=== PATIENT | female | born 1980 | race Caucasian/White ===

== ENCOUNTER 2021-06-13 09:59 | Outpatient (CLI) | payer OTHER | END 2021-06-13 10:00 | disposition home or self-care (01) | LOC: RAD-FRANK 09:59 | PROVIDERS: ATTEND Nurse Practitioner Family | DX: M54.50 Low back pain, unspecified (principal); M43.17 Spondylolisthesis, lumbosacral region; M47.817 Spondylosis without myelopathy or radiculopathy, lumbosacral region | CPT/HCPCS: 72100 ==